=== PATIENT | female | born 1940 | race African-American/Black ===

== ENCOUNTER 2023-03-26 11:56 | Inpatient (IN) | payer MEDICARE, OTHER ==
[~2023-03-26] VITALS: Ht 157.5 cm; Wt 63.5 kg
[2023-03-26] MEDS ORDERED: SENN-261 PO (13:23)
[2023-03-26] MEDS ORDERED: DOCU-141 PO (13:23)
[2023-03-26] MEDS ORDERED: MULT1TAB70 PO (13:23)
[2023-03-26] MEDS ORDERED: ACET-868 PO (13:23)
[2023-03-26] MEDS ORDERED: MIRT-90 PO (13:23)
[2023-03-26] MEDS ORDERED: BENZ-13 PO (13:23)
[2023-03-26] MEDS ORDERED: FURO80TA85 PO (13:23)
[2023-03-26] MEDS ORDERED: MONT10TA22 PO (13:23)
[2023-03-26] MEDS ORDERED: FERR325T23 PO (13:23)
[2023-03-26 14:59] LABS: ALANINE AMINOTRANSFERASE 21 U/L (12-78); ALBUMIN 2.6 g/dL (3.4-5.0); ALKALINE PHOSPHATASE 84 U/L (46-116); ASPARTATE AMINOTRANSFERASE 31 U/L (15-37); BILIRUBIN,DIRECT 0.2 mg/dL (0.0-0.2); BILIRUBIN,TOTAL 0.5 mg/dL (0.2-1.0); CALCIUM, SERUM 8.8 mg/dL (8.5-10.1); CARBON DIOXIDE 21 mmol/L (21-32); CHLORIDE 97 mmol/L (98-107); CREATININE 3.5 mg/dL (0.6-1.3); GLUCOSE 129 mg/dL (74-106); POTASSIUM 3.2 mmol/L (3.5-5.1); SODIUM SERUM 132 mmol/L (136-145); UREA NITROGEN, BLOOD 49 mg/dL (7-18)
[2023-03-26 15:59] LABS: BASOPHILS % (AUTO) 0.1 % (0.0-2.0); HEMATOCRIT 31 % (33-45); LYMPHOCYTES # (AUTO) 0.3 K/uL (0.8-4.8); LYMPHOCYTES % (AUTO) 1.8 % (20.0-44.0); MEAN CORPUSCULAR HEMOGLOBIN 25 PG (26.0-33.0); MEAN CORPUSCULAR HGB CONC 33 g/dl (31.0-36.0); MEAN CORPUSCULAR VOLUME 75 fL (82-100); MONOCYTES # (AUTO) 1.7 K/uL (0.1-1.30); MONOCYTES % (AUTO) 8.4 % (2.0-12.0); NEUTROPHILS # (AUTO) 17.8 K/uL (1.8-8.9); NEUTROPHILS % (AUTO) 89.7 % (43.0-81.0); PLATELET COUNT (AUTO) 198 K/uL (150-450); RED CELL DISTRIBUTION WIDTH 27.2 % (11.5-15.0); WHITE BLOOD COUNT (AUTO) 19.8 K/uL (4.3-11.0)
[2023-03-26] MEDS ORDERED: HYDROCODONE/APAP 5/325MG TABLET PO PRN (17:00)
[2023-03-26] MEDS ORDERED: ONDANSETRON HCL/PF 4 MG/2 ML VIAL IV PRN (17:00)
[2023-03-26] MEDS ORDERED: ACETAMINOPHEN ES 500 MG TABLET PO PRN (17:00)
[2023-03-26 17:40] LABS: APPEARANCE,URINE CLOUDY (CLEAR); BILIRUBIN,URINE NEGATIVE (NEGATIVE); BLOOD, URINE 2+ Ery/uL (NEGATIVE); COLOR,URINE YELLOW (YELLOW); KETONES,URINE NEGATIVE (NEGATIVE); LEUKOCYTE ESTERASE ,URINE 3+ (NEGATIVE); NITRITE, URINE NEGATIVE (NEGATIVE); PROTEIN,URINE 2+ mg/dl (NEGATIVE); UGLUCOSE NEGATIVE (NEGATIVE); UROBILINOGEN,URINE 0.2 EU/dL (0.2)
[2023-03-26 17:43] LABS: ADD URINE CULTURE YES; BACTERIA,URINE 4+ /HPF (None Seen); MUCUS,URINE Many /LPF (None Seen); SQUAMOUS EPITHELIAL CELL,UR Few /HPF (None Seen); WBC,URINE TOO NUMEROUS TO COUN /HPF (0-3)
[2023-03-26] MEDS ORDERED: PIPERACILLIN /TAZOBACTAM 3.375 G in IV D5W 50 ML IV SCH (18:00)
[2023-03-26] MEDS ORDERED: ALBUTEROL FS 2.5 MG/3 ML VIAL.NEB NEB PRN (18:00)
[2023-03-26] MEDS: PIPERACILLIN /TAZOBACTAM 2.25 G in IV D5W 50 ML IV SCH (19:36)
[2023-03-26] MEDS: IV NS 0.9% 1,000 ML IV SCH (19:36)
[2023-03-26 20:00] VITALS: BP 114/62; TEMP 98.8; O2SAT 96
[2023-03-26 21:17] VITALS: O2SAT 96
[2023-03-26 21:23] VITALS: O2SAT 96
[2023-03-26 21:26] VITALS: O2SAT 97
[2023-03-26] MEDS: MIRTAZAPINE 15 MG TABLET PO SCH (22:28)
[2023-03-27] VITALS (7 sets, daily range): BP systolic 84–131; BP diastolic 45–62; TEMP 97.6–98.8; O2SAT 93–100
[2023-03-27] MEDS: PIPERACILLIN /TAZOBACTAM 2.25 G in IV D5W 50 ML IV SCH ×2 (01:35→10:57)
[2023-03-27 06:34] LABS: CALCIUM, SERUM 7.9 mg/dL (8.5-10.1); CARBON DIOXIDE 21 mmol/L (21-32); CHLORIDE 100 mmol/L (98-107); CREATININE 3.6 mg/dL (0.6-1.3); GLUCOSE 144 mg/dL (74-106); MAGNESIUM 2.1 mg/dL (1.8-2.4); POTASSIUM 2.9 mmol/L (3.5-5.1); SODIUM SERUM 134 mmol/L (136-145); UREA NITROGEN, BLOOD 51 mg/dL (7-18)
[2023-03-27 06:39] LABS: BASOPHILS # (AUTO) 0.1 K/uL (0.0-0.2); BASOPHILS % (AUTO) 0.4 % (0.0-2.0); HEMATOCRIT 26 % (33-45); HEMOGLOBIN 8.5 g/dL (11.5-14.8); LYMPHOCYTES # (AUTO) 0.3 K/uL (0.8-4.8); LYMPHOCYTES % (AUTO) 2.2 % (20.0-44.0); MEAN CORPUSCULAR HEMOGLOBIN 25 PG (26.0-33.0); MEAN CORPUSCULAR HGB CONC 33 g/dl (31.0-36.0); MEAN CORPUSCULAR VOLUME 76 fL (82-100); MONOCYTES # (AUTO) 1.9 K/uL (0.1-1.30); MONOCYTES % (AUTO) 11.8 % (2.0-12.0); NEUTROPHILS # (AUTO) 13.5 K/uL (1.8-8.9); NEUTROPHILS % (AUTO) 85.6 % (43.0-81.0); PLATELET COUNT (AUTO) 162 K/uL (150-450); RED BLOOD CELL COUNT(AUTO) 3.45 MIL/uL (4.0-5.2); RED CELL DISTRIBUTION WIDTH 26.6 % (11.5-15.0); WHITE BLOOD COUNT (AUTO) 15.8 K/uL (4.3-11.0)
[2023-03-27] MEDS: POTASSIUM CL. PREMIX PERIPHER. 50 ML IV SCH ×2 (07:37→08:53)
[2023-03-27] MEDS: BENZONATATE 100 MG CAPSULE PO SCH ×3 (08:36→17:42)
[2023-03-27] MEDS: MONTELUKAST SODIUM (10MG) 10 MG TABLET PO SCH (08:36)
[2023-03-27] MEDS: MULTIVITAMINS,THERAGRAN 1 UDTAB TABLET PO SCH (08:36)
[2023-03-27] MEDS: DOCUSATE SODIUM 100 MG CAPSULE PO SCH ×2 (08:36→17:42)
[2023-03-27] MEDS: SENNOSIDES 8.6 MG TABLET PO SCH (08:37)
[2023-03-27] MEDS: FERROUS SULFATE (325 MG) 325 MG/TAB TABLET PO SCH ×2 (08:37→17:42)
[2023-03-27] MEDS ORDERED: ASPIRIN EC 81 MG TABLET.DR PO SCH (09:00)
[2023-03-27] MEDS ORDERED: FUROSEMIDE 40 MG TABLET PO SCH (09:00)
[2023-03-27] MEDS: POTASSIUM CHLORIDE 20 MEQ TAB.PRT.SR PO SCH ×3 (10:57→12:46)
[2023-03-27] MEDS ORDERED: MEROPENEM 500 MG in IV NS 0.9% 50 ML IV SCH (12:30)
[2023-03-27] MEDS: CEFEPIME 1 GM in IV D5W 50 ML IV SCH (15:22)
[2023-03-27] MEDS: IV NS 0.9% 1,000 ML IV SCH ×2 (15:26→21:59)
[2023-03-27 17:16] LABS: RHEUMATOID FACTOR SCREEN NEGATIVE (NEGATIVE)
[2023-03-27 17:42] LABS: THYROID STIMULATING HORMONE 0.439 uIU/mL (0.358-3.74)
[2023-03-27] MEDS ORDERED: ALBUMIN 25% 25 GM in PREMIX 1 EA IV PRN (20:30)
[2023-03-27] MEDS ORDERED: CEFEPIME 1 GM VIAL IM SCH (21:00)
[2023-03-27] MEDS: MIRTAZAPINE 15 MG TABLET PO SCH (21:05)
[2023-03-27 23:10] LABS: HIV-1 p24 ANTIGEN NON REACTIVE (NONREACTIVE); HIV-1/2 ANTIBODY NON REACTIVE (NONREACTIVE)
[2023-03-28] VITALS: BP 119/54; TEMP 98.2; O2SAT 99
[2023-03-28 04:00] VITALS: BP 109/62; TEMP 98; O2SAT 99
[2023-03-28 07:06] LABS: BASOPHILS % (AUTO) 0.2 % (0.0-2.0); EOSINOPHILS % (AUTO) 0.3 % (0.0-6.0); HEMATOCRIT 27 % (33-45); HEMOGLOBIN 8.6 g/dL (11.5-14.8); LYMPHOCYTES # (AUTO) 0.3 K/uL (0.8-4.8); LYMPHOCYTES % (AUTO) 2.2 % (20.0-44.0); MEAN CORPUSCULAR HEMOGLOBIN 25 PG (26.0-33.0); MEAN CORPUSCULAR HGB CONC 32 g/dl (31.0-36.0); MEAN CORPUSCULAR VOLUME 77 fL (82-100); MONOCYTES # (AUTO) 1.6 K/uL (0.1-1.30); MONOCYTES % (AUTO) 11.2 % (2.0-12.0); NEUTROPHILS # (AUTO) 12.5 K/uL (1.8-8.9); NEUTROPHILS % (AUTO) 86.1 % (43.0-81.0); PLATELET COUNT (AUTO) 202 K/uL (150-450); RED CELL DISTRIBUTION WIDTH 26.7 % (11.5-15.0); WHITE BLOOD COUNT (AUTO) 14.5 K/uL (4.3-11.0)
[2023-03-28 07:54] LABS: ALANINE AMINOTRANSFERASE 28 U/L (12-78); ALBUMIN 1.8 g/dL (3.4-5.0); ALKALINE PHOSPHATASE 95 U/L (46-116); ASPARTATE AMINOTRANSFERASE 32 U/L (15-37); BILIRUBIN,TOTAL 0.3 mg/dL (0.2-1.0); CALCIUM, SERUM 8.2 mg/dL (8.5-10.1); CARBON DIOXIDE 20 mmol/L (21-32); CHLORIDE 105 mmol/L (98-107); CREATININE 2.8 mg/dL (0.6-1.3); GLUCOSE 99 mg/dL (74-106); MAGNESIUM 2.1 mg/dL (1.8-2.4); PHOSPHORUS 2.6 mg/dL (2.5-4.9); POTASSIUM 3.9 mmol/L (3.5-5.1); SODIUM SERUM 136 mmol/L (136-145); TOTAL PROTEIN, SERUM 5.6 g/dL (6.4-8.2); UREA NITROGEN, BLOOD 51 mg/dL (7-18)
[2023-03-28 07:56] LABS: CREATINE KINASE, TOTAL 72 U/L (26-192)
[2023-03-28 08:00] VITALS: BP 106/58; TEMP 99; O2SAT 100
[2023-03-28] MEDS: DOCUSATE SODIUM 100 MG CAPSULE PO SCH ×2 (09:07→17:08)
[2023-03-28] MEDS: MULTIVITAMINS,THERAGRAN 1 UDTAB TABLET PO SCH (09:07)
[2023-03-28] MEDS: FERROUS SULFATE (325 MG) 325 MG/TAB TABLET PO SCH (09:08)
[2023-03-28] MEDS: MONTELUKAST SODIUM (10MG) 10 MG TABLET PO SCH (09:08)
[2023-03-28] MEDS: BENZONATATE 100 MG CAPSULE PO SCH ×3 (09:08→17:08)
[2023-03-28] MEDS: SENNOSIDES 8.6 MG TABLET PO SCH (09:08)
[2023-03-28 12:00] VITALS: BP 106/63; TEMP 98.6; O2SAT 97
[2023-03-28] MEDS: IV NS 0.9% 1,000 ML IV SCH (13:26)
[2023-03-28] MEDS: CEFEPIME 1 GM in IV D5W 50 ML IV SCH (14:15)
[2023-03-28 16:00] VITALS: BP 123/63; TEMP 98.4; O2SAT 98
[2023-03-28 20:00] VITALS: BP 115/54; TEMP 99; O2SAT 98
[2023-03-28] MEDS: MIRTAZAPINE 15 MG TABLET PO SCH (21:32)
[2023-03-29] VITALS (7 sets, daily range): BP systolic 110–127; BP diastolic 55–74; TEMP 97.9–98.8; O2SAT 96–100
[2023-03-29] MEDS: IV NS 0.9% 1,000 ML IV SCH ×2 (01:43→16:33)
[2023-03-29 06:29] LABS: BASOPHILS % (AUTO) 0.4 % (0.0-2.0); EOSINOPHILS # (AUTO) 0.1 K/uL (0.0-0.7); EOSINOPHILS % (AUTO) 0.7 % (0.0-6.0); HEMATOCRIT 27 % (33-45); HEMOGLOBIN 8.7 g/dL (11.5-14.8); LYMPHOCYTES # (AUTO) 2.3 K/uL (0.8-4.8); LYMPHOCYTES % (AUTO) 16.5 % (20.0-44.0); MEAN CORPUSCULAR HEMOGLOBIN 25 PG (26.0-33.0); MEAN CORPUSCULAR HGB CONC 32 g/dl (31.0-36.0); MEAN CORPUSCULAR VOLUME 77 fL (82-100); MONOCYTES # (AUTO) 1.4 K/uL (0.1-1.30); MONOCYTES % (AUTO) 9.8 % (2.0-12.0); NEUTROPHILS % (AUTO) 72.6 % (43.0-81.0); PLATELET COUNT (AUTO) 215 K/uL (150-450); RED BLOOD CELL COUNT(AUTO) 3.55 MIL/uL (4.0-5.2); RED CELL DISTRIBUTION WIDTH 26.4 % (11.5-15.0); WHITE BLOOD COUNT (AUTO) 13.8 K/uL (4.3-11.0)
[2023-03-29 08:05] LABS: CALCIUM, SERUM 8.8 mg/dL (8.5-10.1); CARBON DIOXIDE 19 mmol/L (21-32); CHLORIDE 104 mmol/L (98-107); CREATININE 2.3 mg/dL (0.6-1.3); GLUCOSE 125 mg/dL (74-106); POTASSIUM 4.1 mmol/L (3.5-5.1); SODIUM SERUM 133 mmol/L (136-145); UREA NITROGEN, BLOOD 44 mg/dL (7-18)
[2023-03-29 08:06] LABS: IMMUNOGLOBULIN A, SERUM 227 mg/dL (64-422); IMMUNOGLOBULIN G, SERUM 728 mg/dL (586-1602); IMMUNOGLOBULIN M, SERUM 19 mg/dL (26-217)
[2023-03-29] MEDS: SENNOSIDES 8.6 MG TABLET PO SCH (08:21)
[2023-03-29] MEDS: MULTIVITAMINS,THERAGRAN 1 UDTAB TABLET PO SCH (08:21)
[2023-03-29] MEDS: MONTELUKAST SODIUM (10MG) 10 MG TABLET PO SCH (08:21)
[2023-03-29] MEDS: BENZONATATE 100 MG CAPSULE PO SCH ×3 (08:21→16:36)
[2023-03-29] MEDS: DOCUSATE SODIUM 100 MG CAPSULE PO SCH ×2 (08:21→16:36)
[2023-03-29 08:43] LABS: ANISOCYTOSIS 1+; LYMPHOCYTES % (MANUAL) 9 % (16-48); MONOCYTES % (MANUAL) 6 % (0-11.0); NEUTROPHILS % (MANUAL) 85 (42-76); OVALOCYTES 1+; PLATELET ESTIMATE ADEQUATE; STOMATOCYTES 1+
[2023-03-29 10:07] LABS: *ANA ANTI-CENTROMERE B AB <0.2 AI (0.0-0.9); *ANA ANTI-DNA(DS) AB, QN <1 IU/mL (0-9); *ANA ANTI-JO-1 <0.2 AI (0.0-0.9); *ANA ANTICHROMATIN ANTIBODY <0.2 AI (0.0-0.9); *ANA RNP ANTIBODIES <0.2 AI (0.0-0.9); *ANA SJOGREN'S ANTI-SS-A <0.2 AI (0.0-0.9); *ANA SJOGREN'S ANTI-SS-B <0.2 AI (0.0-0.9); *ANAANTI-SCLERODERMA-70 AB <0.2 AI (0.0-0.9); *ANASMITH AB <0.2 AI (0.0-0.9)
[2023-03-29] MEDS: CEFEPIME 1 GM in IV D5W 50 ML IV SCH (13:06)
[2023-03-29] MEDS ORDERED: AMOX/CLAVULANATE 875 MG TABLET PO SCH (13:30)
[2023-03-29] MEDS ORDERED: AMOX/CLAVULANATE 500 MG TABLET PO SCH (21:00)
[2023-03-29] MEDS: MIRTAZAPINE 15 MG TABLET PO SCH (21:21)
[2023-03-29] MEDS: AMOX/CLAVULANATE 250 MG TABLET PO SCH (22:56)
[2023-03-30] VITALS: BP 125/62; TEMP 98.5; O2SAT 97
[2023-03-30 02:07] LABS: FOLIC ACID 13.6 ng/mL (>3.0)
[2023-03-30 02:07] LABS: PTH, INTACT 102 pg/mL (15-65)
[2023-03-30 03:07] LABS: HEPATITIS B SURFACE AB Non Reactive (.)
[2023-03-30 04:00] VITALS: BP 119/62; TEMP 98.6; O2SAT 98
[2023-03-30 05:08] LABS: *SPE A/G RATIO 0.7 (0.7-1.7); *SPE ALPHA-1-GLOBULIN 0.5 g/dL (0.0-0.4); *SPE ALPHA-2-GLOBULIN 0.9 g/dL (0.4-1.0); *SPE BETA GLOBULIN 0.9 g/dL (0.7-1.3); *SPE M-SPIKE Not Observed g/dL (Not Observed); *SPEGAMMA GLOBULIN 0.7 g/dL (0.4-1.8)
[2023-03-30 07:31] LABS: BASOPHILS % (AUTO) 0.4 % (0.0-2.0); EOSINOPHILS # (AUTO) 0.1 K/uL (0.0-0.7); EOSINOPHILS % (AUTO) 0.8 % (0.0-6.0); HEMATOCRIT 31 % (33-45); HEMOGLOBIN 9.7 g/dL (11.5-14.8); LYMPHOCYTES # (AUTO) 2.6 K/uL (0.8-4.8); LYMPHOCYTES % (AUTO) 23.3 % (20.0-44.0); MEAN CORPUSCULAR HEMOGLOBIN 25 PG (26.0-33.0); MEAN CORPUSCULAR HGB CONC 31 g/dl (31.0-36.0); MEAN CORPUSCULAR VOLUME 79 fL (82-100); MONOCYTES # (AUTO) 1.1 K/uL (0.1-1.30); MONOCYTES % (AUTO) 9.7 % (2.0-12.0); NEUTROPHILS # (AUTO) 7.4 K/uL (1.8-8.9); NEUTROPHILS % (AUTO) 65.8 % (43.0-81.0); PLATELET COUNT (AUTO) 237 K/uL (150-450); RED BLOOD CELL COUNT(AUTO) 3.93 MIL/uL (4.0-5.2); RED CELL DISTRIBUTION WIDTH 27.2 % (11.5-15.0); WHITE BLOOD COUNT (AUTO) 11.3 K/uL (4.3-11.0)
[2023-03-30 07:59] LABS: CALCIUM, SERUM 8.8 mg/dL (8.5-10.1); CARBON DIOXIDE 17 mmol/L (21-32); CHLORIDE 107 mmol/L (98-107); CREATININE 1.6 mg/dL (0.6-1.3); GLUCOSE 115 mg/dL (74-106); MAGNESIUM 2.2 mg/dL (1.8-2.4); POTASSIUM 3.7 mmol/L (3.5-5.1); SODIUM SERUM 134 mmol/L (136-145); UREA NITROGEN, BLOOD 31 mg/dL (7-18)
[2023-03-30 08:00] VITALS: BP 135/76; TEMP 98.4; O2SAT 100
[2023-03-30] MEDS: DOCUSATE SODIUM 100 MG CAPSULE PO SCH ×2 (08:05→16:36)
[2023-03-30] MEDS: ASPIRIN EC 81 MG TABLET.DR PO SCH (08:05)
[2023-03-30] MEDS: MONTELUKAST SODIUM (10MG) 10 MG TABLET PO SCH (08:05)
[2023-03-30] MEDS: MULTIVITAMINS,THERAGRAN 1 UDTAB TABLET PO SCH (08:05)
[2023-03-30] MEDS: SENNOSIDES 8.6 MG TABLET PO SCH (08:05)
[2023-03-30] MEDS: AMOX/CLAVULANATE 250 MG TABLET PO SCH ×2 (08:05→21:30)
[2023-03-30] MEDS: BENZONATATE 100 MG CAPSULE PO SCH ×3 (08:06→16:36)
[2023-03-30 11:07] LABS: *SPE A/G RATIO 0.8 (0.7-1.7); *SPE ALBUMIN 2.3 g/dL (2.9-4.4); *SPE ALPHA-1-GLOBULIN 0.5 g/dL (0.0-0.4); *SPE ALPHA-2-GLOBULIN 0.9 g/dL (0.4-1.0); *SPE M-SPIKE Not Observed g/dL (Not Observed); *SPE PROTEIN TOTAL 5.3 g/dL (6.0-8.5); *SPEGAMMA GLOBULIN 0.6 g/dL (0.4-1.8)
[2023-03-30 11:18] LABS: BAND % (MANUAL) 1 % (0.0-5.0); HYPOCHROMASIA 1+; LYMPHOCYTES % (MANUAL) 9 % (16-48); MONOCYTES % (MANUAL) 10 % (0-11.0); NEUTROPHILS % (MANUAL) 80 (42-76); PLATELET ESTIMATE ADEQUATE
[2023-03-30 11:19] LABS: ANISOCYTOSIS 1+; OVALOCYTES 1+; TARGET CELLS FEW
[2023-03-30 12:00] VITALS: BP 129/75; TEMP 97.5; O2SAT 100
[2023-03-30 12:07] LABS: FREE KAPPA LT CHAINS SERUM 71.6 mg/L (3.3-19.4)
[2023-03-30 16:00] VITALS: BP 118/61; TEMP 98.9; O2SAT 99
[2023-03-30 20:00] VITALS: BP 110/65; TEMP 97.8; O2SAT 98
[2023-03-30] MEDS: MIRTAZAPINE 15 MG TABLET PO SCH (21:30)
[2023-03-31 04:00] VITALS: BP 120/65; TEMP 97.5; O2SAT 97
[2023-03-31 08:00] VITALS: BP 145/75; TEMP 99; O2SAT 94
[2023-03-31] MEDS: MULTIVITAMINS,THERAGRAN 1 UDTAB TABLET PO SCH (08:38)
[2023-03-31] MEDS: SENNOSIDES 8.6 MG TABLET PO SCH (08:38)
[2023-03-31] MEDS: DOCUSATE SODIUM 100 MG CAPSULE PO SCH ×2 (08:38→16:34)
[2023-03-31] MEDS: BENZONATATE 100 MG CAPSULE PO SCH ×3 (08:38→16:34)
[2023-03-31] MEDS: MONTELUKAST SODIUM (10MG) 10 MG TABLET PO SCH (08:38)
[2023-03-31] MEDS: ASPIRIN EC 81 MG TABLET.DR PO SCH (08:38)
[2023-03-31] MEDS: AMOX/CLAVULANATE 250 MG TABLET PO SCH (08:39)
[2023-03-31 09:27] LABS: BASOPHILS % (AUTO) 0.4 % (0.0-2.0); EOSINOPHILS # (AUTO) 0.1 K/uL (0.0-0.7); EOSINOPHILS % (AUTO) 1.1 % (0.0-6.0); HEMATOCRIT 27 % (33-45); HEMOGLOBIN 8.8 g/dL (11.5-14.8); LYMPHOCYTES # (AUTO) 2.2 K/uL (0.8-4.8); LYMPHOCYTES % (AUTO) 18.9 % (20.0-44.0); MEAN CORPUSCULAR HEMOGLOBIN 25 PG (26.0-33.0); MEAN CORPUSCULAR HGB CONC 32 g/dl (31.0-36.0); MEAN CORPUSCULAR VOLUME 76 fL (82-100); MONOCYTES # (AUTO) 1.1 K/uL (0.1-1.30); MONOCYTES % (AUTO) 9.4 % (2.0-12.0); NEUTROPHILS # (AUTO) 8.1 K/uL (1.8-8.9); NEUTROPHILS % (AUTO) 70.2 % (43.0-81.0); PLATELET COUNT (AUTO) 269 K/uL (150-450); RED BLOOD CELL COUNT(AUTO) 3.55 MIL/uL (4.0-5.2); WHITE BLOOD COUNT (AUTO) 11.5 K/uL (4.3-11.0)
[2023-03-31 09:44] LABS: IRON, SERUM 8 ug/dl (50-175); TOTAL IRON BINDING CAPACITY 115 ug/dl (250-450)
[2023-03-31 09:56] LABS: FERRITIN 606 ng/mL (8-388)
[2023-03-31 16:00] VITALS: BP 136/64; TEMP 98.8; O2SAT 94
[2023-03-31] MEDS ORDERED: AMOX-430 PO (16:37)
== END 2023-03-31 18:19 | DRG 682 ==
LOC: ER 11:56 → TELE1 17:32 → MEDSG1 03-31 09:42
PROVIDERS: ADMIT Nurse Practitioner Family; ATTEND Nurse Practitioner Acute Care
PROC: 05HC33Z Insertion of Infusion Device into Left Basilic Vein, Percutaneous Approach (ICD-10-PCS; principal; 2023-03-26)
PROC: 05HC33Z Insertion of Infusion Device into Left Basilic Vein, Percutaneous Approach (ICD-10-PCS; 2023-03-27)
DX: N17.0 Acute kidney failure with tubular necrosis (principal); Z00.6 Encounter for examination for normal comparison and control in clinical research program; E43 Unspecified severe protein-calorie malnutrition; I21.A1 Myocardial infarction type 2; N39.0 Urinary tract infection, site not specified; I13.0 Hypertensive heart and chronic kidney disease with heart failure and stage 1 through stage 4 chronic kidney disease, or unspecified chronic kidney disease; J90 Pleural effusion, not elsewhere classified; I50.9 Heart failure, unspecified; N18.9 Chronic kidney disease, unspecified; Z20.822 Contact with and (suspected) exposure to COVID-19; Z79.899 Other long term (current) drug therapy; J45.909 Unspecified asthma, uncomplicated; E88.09 Other disorders of plasma-protein metabolism, not elsewhere classified; E87.6 Hypokalemia; D64.9 Anemia, unspecified; B96.20 Unspecified Escherichia coli [E. coli] as the cause of diseases classified elsewhere; C50.912 Malignant neoplasm of unspecified site of left female breast; I48.91 Unspecified atrial fibrillation; R59.0 Localized enlarged lymph nodes; T45.1X5A Adverse effect of antineoplastic and immunosuppressive drugs, initial encounter; Y92.129 Unspecified place in nursing home as the place of occurrence of the external cause
CPT/HCPCS: 36410; 36415; 71045-TC; 71250-TC; 80048-TC; 80053-TC; 80076-TC; 81001; 82378; 82550-TC; 82607-TC; 82728-TC; 82784; 83540-TC; 83735-TC; 83880; 83970; 84100-TC; 84155; 84165; 84443-TC; 84484-TC; 85025-TC; 85045-TC; 86140-TC; 86225; 86235; 86300; 86334; 86431-TC; 86706; 86803; 87040-TC; 87086-TC; 87340; 87806; 93307-TC; 94799-TC; 97112-TC; 97116-TC; 97530-TC; A4223; A6253; A6403; C9803; G0378; J0692; J2543; J3480; J7030; J7060